=== PATIENT | female | born 2000 | race Two or more races ===

== ENCOUNTER 2024-07-08 19:15 | Emergency (ER) | payer MEDICAID, SELFPAY ==
[2024-07-08 19:16] VITALS: BMI 22.2
[2024-07-08 20:14] VITALS: BP 128/87; PULSE 65; RESP 18; TEMP 36.9; O2SAT 99
--- NOTE | 2024-07-08 21:29 | PD.EDRME ---
Rapid Medical Screening Exam RME Arrival date/time: 07/08/24 19:15 Chief Complaint: Abdominal Pain Time Seen by Provider: 07/08/24 20:27 Vital signs: Vital Signs Temperature 98.5 F 07/08/24 20:14 Pulse Rate 65 07/08/24 20:14 Respiratory Rate 18 07/08/24 20:14 Blood Pressure 128/87 H 07/08/24 20:14 Pulse Oximetry (%) 99 07/08/24 20:14 Oxygen Delivery Method Room Air 07/08/24 20:14 Vital signs reviewed by provider: Yes RME Narrative: 24-year-old female with no reported past medical history presents for evaluation of sharp epigastric pain x 12 hours. She endorses intermittent nausea without vomiting. Denies history of similar symptoms.
--- NOTE | 2024-07-08 21:31 | EKG_ITS ---
[facility] Test Date: 2024-07-08 Pat Name: ANA LAURA BORREGO Department: Room: - Gender: Female [employer] [place] [facility]: : 2000 Requested By: Henrry Arshad Order Number: [id number] Reading MD: Henrry Arshad Measurements Intervals [place] Rate: 64 P: 71 KS: 135 QRS: 80 QRSD: 86 T: 77 QT: 388 QTc: 402 Interpretive Statements SINUS RHYTHM POSSIBLE LEFT ATRIAL ENLARGEMENT [-0.1mV P-WAVE IN V1/V2] MODERATE ST DEPRESSION [0.05+ mV ST DEPRESSION] No previous ECG available for comparison /store/S0/[id number].pdf
[2024-07-08] MEDS: ACETAMINOPHEN 325 MG TABLET 650 MG PO (21:42)
[2024-07-08] MEDS: ONDANSETRON ODT 4 MG TABRAP PO (21:42)
[2024-07-08 22:06] LABS: Basophils # (Auto) 0.1 Thou/mm3 (0.0-0.2); Basophils % (Auto) 0 % (0-2.5); Eosinophils % (Auto) 0 % (0-10); Hematocrit 45.3 % (36.0-46.0); Hemoglobin 15.2 g/dL (12.0-16.0); Immature Granulocytes % (Auto) 0 % (0-0); Immature Granulocytes Auto 0.05 Thou/mm3 (0.00-0.00); Lymphocytes # (Auto) 1.7 Thou/mm3 (1.0-4.8); Lymphocytes % (Auto) 13 % (10-50); Mean Corpuscular HGB Conc 33.6 g/dl (31.0-37.0); Mean Corpuscular Volume 92 fL (80-100); Monocytes # (Auto) 1.7 Thou/mm3 (0.0-0.8); Monocytes % (Auto) 12 % (0-12); Neutrophils % (Auto) 74 % (37-80); Nucleated Red Blood Cell % 0 /100 WBC (0); Platelet Count 336 Thou/mm3 (140-440); RDW Standard Deviation 39.8 fL (36.4-46.3); Red Blood Count 4.91 Miln/mm3 (4.00-5.20); White Blood Count 13.5 Thou/mm3 (3.6-11.0)
[2024-07-08 22:28] LABS: Alanine Aminotransferase 86 U/L (10-49); Albumin/Globulin Ratio 1.9 (1.2-2.2); Alkaline Phosphatase 154 U/L (46-116); Anion Gap 7 (7-16); Aspartate Amino Transferase 64 U/L (0-34); BUN/Creatinine Ratio 10 Ratio (12-20); Bilirubin,Total 0.5 mg/dL (0.3-1.2); Blood Urea Nitrogen 7 mg/dL (9-23); Calcium 10.4 mg/dL (8.3-10.6); Calcium (Corrected) 10.4 mg/dL (8.5-10.1); Carbon Dioxide 27.7 mMol/L (20.0-31.0); Chloride 104 mMol/L (98-107); Creatinine (Component) 0.7 mg/dL (0.6-1.3); Globulin 2.7 gm/dL (2.3-3.5); Glucose 96 mg/dL (74-106); Lipase 24 U/L (12-53); Osmolality,Calculated 275 (275-295); Potassium 4.2 mMol/L (3.4-5.1); Sodium 139 mMol/L (136-145); Total Protein 7.7 gm/dL (5.7-8.2); Troponin I < 0.002 ng/mL (0.0-0.045); eGFR > 60 See Note
[2024-07-08 23:12] LABS: Collection Type, Urine Clean Catch
[2024-07-08 23:18] LABS: HCG Qualitative,Urine Negative
[2024-07-08 23:20] LABS: Bilirubin,Urine Negative (Negative); Blood,Urine 2+ (Negative); Clarity,Urine Turbid (Clear/Hazy); Color,Urine Yellow (Lt Yel-Yel); Culture Indicated,Urine Yes; Glucose, Urine Negative (Negative); Ketones,Urine 3+ (Negative); Leukocyte Esterase,Urine Positive (Negative); Nitrite,Urine Negative (Negative); Protein,Urine 1+ (Neg - Trace); RBC,Urine 6 /hpf (0-3); Specific Gravity,Urine 1.032 (1.001-1.035); Squamous Epithelial Cell,Urine 3 /hpf (0-5); WBC,Urine 13 /hpf (0-5)
--- NOTE | 2024-07-09 00:43 | XR_ITS ---
Examination: CT abdomen and pelvis without contrast. Coronal 3-D reconstructions. Sagittal 2-D reconstructions. Date and time of exam:July 09, 2024 at 0017 hours INDICATIONS: Abdominal pain beginning this morning CTDI: vol (mGy): 5.66 DLP: (mGycm): 291 Technique: Axial images of the abdomen have been obtained, 3 mm slice thickness Intravenous contrast material has not been administered. Low dose protocols were performed. One or more of the following dose reduction techniques were used; automated exposure control, adjustment of the mA and/or KV according to patient size, use of iterative reconstruction technique. Findings: No focal liver or splenic lesion Suspicious for gallstones No renal or ureteral calculi, no hydronephrosis No bowel obstruction Normal appendix No pelvic mass Thickening of urinary bladder wall up to 8 mm The osseous structures are intact IMPRESSION: Recommend hepatobiliary sonography to exclude cholelithiasis Cystitis pattern
--- NOTE | 2024-07-09 02:55 | PRELIM_ITS ---
CT scan of the abdomen and pelvis without intravenous contrast (axial sections with sagittal and coronal reformats) July 09, 2024 0147 hours Clinical History: Abdominal pain Comparison: None. Findings: The lung bases are clear. The liver, pancreas, spleen, kidneys and adrenals are unremarkable on this noncontrast study. Gallbladder sludge. No acute cholecystitis. The uterus and ovaries are within normal limits. No evidence of bowel obstruction. The appendix is within normal limits. There is no mesenteric or retroperitoneal adenopathy. The urinary bladder is nondistended, limited evaluation, prominent urinary bladder wall. There is no free fluid or free air. The osseous structures are unremarkable. Impression: Possible cystitis. No evidence of kidney or ureteral stones. Report Electronically Signed By: Isidro Bullard 07/09/2024 2:54:52 AM [EST]
[2024-07-09 03:22] VITALS: BP 111/77; PULSE 57; RESP 17; TEMP 36.7; O2SAT 100
[2024-07-09] MEDS: cefTRIAXone 500 MG, LIDOCAINE 1% 20 ML 1 ML IM (04:43)
--- NOTE | 2024-07-09 05:22 | PD.EDABDPN ---
ED Abdominal Pain RME/HPI General Chief Complaint: Abdominal Pain Stated complaint: FEVER, ABD PAIN Time seen by provider: 07/08/24 20:27 Arrival date/time: 07/08/24 19:15 Limitations: no limitations RME / HPI RME / HPI narrative: 24-year-old female with no reported past medical history presents for evaluation of sharp epigastric pain x 12 hours. She endorses intermittent nausea without vomiting. She denies dysuria, hematuria, increased vaginal discharge, diarrhea, amd fever. Denies history of similar symptoms. Patient reports that she drinks 2-3 beers daily. LNMP x 1 month ago. complaint: abdominal pain Onset (ago): hour(s) Consistency: intermittent Location: periumbilical and epigastric Severity: moderate Quality: sharp Radiation: none Migration to: no migration Relieving factors: nothing Exacerbating factors: nothing Associated symptoms: nausea Related Data Home Medications ?Medication ?Instructions ?Recorded ?Confirmed vits no.124-ferrous fum 1 tab PO QDAY 02/28/22 02/28/22 27 mg iron-folic acid 800 mcg tablet ( Vitamin) Previous Rx's ?Medication ?Instructions ?Recorded ibuprofen 600 mg tablet 600 mg PO Q6H #30 tabs 10/05/23 ibuprofen 600 mg tablet 600 mg PO Q6H #30 tabs 02/01/24 cephalexin 500 mg capsule 500 mg PO BID 7 days #14 caps 07/09/24 Allergies Allergy/AdvReac Type Severity Reaction Status Date / Time No Known Allergies Allergy Verified 02/28/22 19:58 Review of Systems Constitutional Constitutional: Denies chills, Denies fever(s), Denies poor appetite, Denies night sweats and Denies weakness Eyes Eyes: Denies blurry vision and Denies change in vision ENT Ears, Nose, Mouth, and Throat: Denies dizziness and Denies neck pain Cardiovascular Cardiovascular: Denies chest pain and Denies dyspnea Respiratory Respiratory: Denies cough, Denies dyspnea and Denies wheezing Gastrointestinal Gastrointestinal: Reports abdominal pain (periumbilical ), Denies bloating, Denies change in bowel habits, Denies constipation, Denies cramping, Denies diarrhea, Denies dyspepsia, Denies hematemesis, Denies melena, Reports nausea and Denies vomiting Genitourinary Genitourinary: Denies dysuria, Denies hematuria, Denies pelvic pain and Denies vaginal discharge Musculoskeletal Musculoskeletal: Denies back pain, Denies neck pain and Denies numbness Integumentary/Breasts Skin/Breast: Denies change in pigmentation and Denies rash Neurologic Neurologic: Denies dizziness, Denies numbness and Denies weakness Allergic/Immunologic Allergic/Immunologic: Denies wheezing Past Medical History Past Medical History NEUROLOGIC: Negative Neurological Disorders CARDIAC: Negative Cardiac Disorders or Congestive Heart Failure RESPIRATORY: Negative Chronic Obstructive Pulmonary Disease (COPD) GASTROINTESTINAL: Negative Gastrointestinal Disorders GENITOURINARY: Negative Genitourinary Disorders or Renal Disease MUSCULOSKELETAL: Negative Musculoskeletal Disorders ENDOCRINE: Negative Endocrine Disorders, Diabetes Mellitus Type 1 or Diabetes Mellitus Type 2 HEMATOLOGIC: Negative Blood Disorders OTHER HISTORY: Negative Autoimmune Disease Family History FAMILY HISTORY: Negative Family Psychiatric Problems, Family Respiratory Disorders, Family Cardiac Disorders, Family Gastrointestinal Problems, Family Cancer, Family Surgery or Family Anesthesia Reaction Surgical History SURGICAL: Positive Tonsillectomy (2020) Social History SMOKING STATUS: Never smoker ED Exam General Limitations: Present no limitations General appearance: Present alert and in no apparent distress Head Head exam: Present atraumatic and normocephalic Eye Eye exam: Present normal appearance and EOMI; Absent scleral icterus ENT ENT exam: Present normal exam, normal oropharynx and mucous membranes moist Neck Neck exam: Present normal inspection and full ROM Chest Chest inspection: Present normal inspection and symmetric chest wall rise Respiratory Respiratory exam: Present normal lung sounds bilaterally; Absent respiratory distress or wheezes Cardiovascular Cardiovascular exam: Present regular rate, normal heart sounds and +S1 Abdominal Exam Abdominal exam: Present soft, tenderness, guarding and normal bowel sounds; Absent distention, rigidity, tenderness at McBurney's Point or mass Abdominal tenderness: Present RUQ and epigastrium Rectal Exam Rectal exam: Present deferred Extremities Exam Extremities exam: Present normal inspection and full ROM Back Exam Back exam: Present normal inspection; Absent CVA tenderness (R) or CVA tenderness (L) Neurological Exam Neurological exam: Present alert and normal gait Psychiatric Psychiatric exam: Present normal affect Skin Skin exam: Present warm, dry and normal color; Absent pallor Course Quality Measures none Orders Category Date Time Status EKG (ED ONLY) *Do not use* NOW Care 07/08/24 21:[address] abdomen pelvis wo con Stat Exams 07/09/24 00:43 Taken EKG (ED Only) Stat Exams 07/08/24 21:31 Draft CBC Stat Lab 07/08/24 21:57 Completed CMP [Comprehensive Metabolic Panel] Stat Lab 07/08/24 21:57 Completed HCG Qualitative,Urine Stat Lab 07/08/24 22:36 Completed Lipase Stat Lab 07/08/24 21:57 Completed Troponin I Stat Lab 07/08/24 21:57 Completed UA, C/S IF [Urinalysis, C/S if Indicated] Stat Lab 07/08/24 22:36 Completed Urine Culture Stat Lab 07/08/24 22:36 Received Acetaminophen Tab [Tylenol Tab] Med 07/08/24 21:30 Discontinued 650 mg PO X1 ONE Ondansetron Odt [Zofran Odt] Med 07/08/24 21:30 Discontinued 4 mg PO X1 ONE cefTRIAXone [Rocephin] 500 mg Med 07/09/24 04:38 Discontinued Lidocaine 1% 20 ml [Xylocaine 1% 20 ML] 1 ml IM X1 Vital Signs Vital signs: Vital Signs Temperature 98.5 F 07/08/24 20:14 Pulse Rate 65 07/08/24 20:14 Respiratory Rate 18 07/08/24 20:14 Blood Pressure 128/87 H 07/08/24 20:14 Pulse Oximetry (%) 99 07/08/24 20:14 Oxygen Delivery Method Room Air 07/08/24 20:14 Pulse ox 99% on room air, within normal limits. Procedures -ED EKG Interpretation #1: Date of EK07/09/24 Rate: 64 Interpretation: Reviewed by me EKG Impression: Normal sinus rhythm, Normal intervals and Non-specific ST-T Abdominal Pain MDM MDM Narrative MDM Narrative:: 24-year-old female presented for evaluation of periumbilical pain x 12 hours. Vital signs reassuring. Upper abdominal pain on physical exam. CT abdomen pelvis was obtained today which showed mild bladder wall thickening. UA was consistent with cystitis with positive leuks and white blood cells present. Culture pending. Less concern for pancreatitis given normal lipase level. Patient did have diffuse transaminitis with moderate elevation. Less concern for ACS given negative troponin and reassuring EKG. Ultimately the patient was diagnosed with cystitis and given a shot of Rocephin in the department and discharged on a course of Keflex. We discussed the results of her labs and I encouraged her to abstain from drinking alcohol until she can be further evaluated and treated by her primary care doctor for elevated liver enzymes. Patient vocalized understanding and was stable at the time of discharge. Patient data External records reviewed:: [facility] previous records Clinical information provided by:: patient Social determinants that could affect healthcare access:: none Patient has the following chronic illnesses:: None reported. How is presenting disease/condition affected by chronic disease/condition?: no chronic disease Evaluation data The following diagnostics were reviewed and interpreted by me:: lab results, radiology exam(s) and EKG tracing(s) Lab and/or radiology exams considered but not ordered:: Considered not ordered. Interpretation Summary: Metabolic panel significant for moderate transaminitis. UA significant for positive leuks and white blood cells, pointing towards cystitis. Hematuria present. CT abdomen pelvis with bladder wall thickening, pointing towards cystitis. Mild leukocytosis. Medications / Prescriptions Medications or Prescriptions considered but not ordered:: Rx given. Medication administrations:: Medication Administration History Discontinued Medications Acetaminophen (Acetaminophen 325 Mg Tablet) 650 mg PO X1 ONE Stop: 07/08/24 21:31 Last Admin: 07/08/24 21:42 Dose: 650 mg Documented By: FARZANA Ceftriaxone Sodium 500 mg/ (Lidocaine HCl 1 ml) 0 mg IM X1 ONE Stop: 07/09/24 04:39 Last Admin: 07/09/24 04:43 Dose: 500 mg Documented By: IVANNA Ondansetron HCl (Ondansetron Odt 4 Mg Tabrap) 4 mg PO X1 ONE; Protocol Stop: 07/08/24 21:31 Last Admin: 07/08/24 21:42 Dose: 4 mg Documented By: FARZANA Rx given. Consultations Consultation(s) initiated? (list below): No Diagnosis Differential diagnosis abdominal pain: abdominal pain, acute appendicitis, calculus of kidney, pancreatitis and other (Cystitis, hepatitis.) Most likely diagnosis given after review of the tests above:: Cystitis. Transaminitis. Admission Indicated Admission indicated?: not indicated Admission Request Was there a request for admission?: No Disposition Plan Disposition Plan: Discharge Discharge Attestation Discharge Attestation: The patient and all family members were given an opportunity to ask questions and understood the discharge instructions. Discharge instructions specifically effects, indications for sooner follow up or return to the emergency department, and the expected course of current diagnosis. Patient condition: Stable Discharge Plan Plan Patient Disposition: HOME (Self Care) Disposition Comment: stable Prescriptions/Referrals Prescriptions/Med Rec: New cephalexin 500 mg capsule 500 mg PO BID 7 Days Qty: 14 0RF No Action ibuprofen 600 mg tablet 600 mg PO Q6H Qty: 30 0RF Vitamin 27 mg iron- 800 mcg Tablet 1 tab PO QDAY ibuprofen 600 mg tablet 600 mg PO Q6H Qty: 30 0RF Referrals: No Primary/Family,Physician [Primary Care Provider] - In 1 week Problem List Clinical Impression: Transaminitis, Bladder wall thickening, Cystitis Patient/Caregiver Discharge Instructions Other Activity Instructions:: Take Keflex antibiotic twice daily for the next time 7 days for urinary tract infection. Take Motrin as needed for abdominal pain up to every 6 hours. Follow-up with primary care for further evaluation and treatment. Follow-up with primary care for elevated liver enzymes. Return to the ED if her symptoms worsen or change. Education Materials: ED CYSTITIS Female Adult Print Language: Fijian Stand Alone Forms: Corrina Award Info., Patient Portal Info Letter PA/MANAGER MEDICAID Supervising Physician PA/MANAGER MEDICAID Supervising Physician: Dr. Norwood
== END 2024-07-09 04:49 | disposition home or self-care (01) ==
PROVIDERS: Physician Assistant; Emergency Provider Emergency Medicine
DX: N30.90 Cystitis, unspecified without hematuria (principal); R74.01 Elevation of levels of liver transaminase levels
CPT/HCPCS: 36415; 74176; 80053; 81001; 81025; 83690; 84484; 85025; 87077; 87086; 87186; 93005; 96372; 99284; J0696; J3490; Q0162; A9270